=== PATIENT | female | born 1990 | race African-American/Black ===

== ENCOUNTER 2022-01-03 17:22 | Emergency (ER) | payer BC, MEDICAID, SELFPAY ==
[2022-01-03 17:32] VITALS: BP 138/87; PULSE 83; RESP 16; TEMP 36.3; O2SAT 100
--- NOTE | 2022-01-03 17:35 | ED.URI ---
HPI - URI/Sore Throat General Chief Complaint: Headache Stated Complaint: Headaches,Hot and Cold Flashes Time Seen by Provider: 01/03/22 17:35 Source: patient Mode of arrival: ambulatory Limitations: no limitations History of Present Illness HPI Narrative: Ms. Valles is a 31-year-old female patient presenting to the clinic today with complaints of headache, dental pain, body aches, and hot/cold flashes x2 to 3 days. 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 She denies any known fever. Related Data Allergies Allergy/AdvReac Type Severity Reaction Status Date / Time No Known Allergies Allergy Verified 01/03/22 17:32 Review of Systems Review of Systems: Pertinent positives per HPI. Patient denies any fever, rash, visual changes, dizziness, cough, runny nose, sore throat, shortness of breath, chest pain, palpitations, nausea, vomiting, diarrhea, constipation, abdominal pain, or any urinary issues. PMFSH Comments At the time of my signature, I reviewed and agree with the nursing past medical, surgical, social, and family history. There is no relevant family history pertinent to the patient complaint. Exam Narrative: General: Well-developed, obese, in no apparent distress Head: Normocephalic, atraumatic Eyes: Pupils equally round and reactive to light bilaterally, EOM intact, sclera and conjunctive clear, no discharge, lids normal Ears: TMs intact and clear, ear canals clear, no drainage, grossly hearing normal. Nose: Nares patent, no discharge, no inflammation, no sinus tenderness. Mouth: Oropharynx without lesions or masses, poor dentition, MMM. Fractured tooth with cavity and gum swelling to tooth #3 Neck: Supple, trachea midline, no enlargement of anterior or posterior cervical nodes, no thyroid masses or goiter palpable. Cardio: Regular rate and rhythm, s1 and s2 normal, no murmur appreciated. Resp: Clear to auscultation bilaterally anteriorly and posteriorly, no rhonchi, rales, wheezing or rubs Course Course Emergency Course: Portions of this record may have been created with voice recognition software. Level of Care: Express Care Visit Vital Signs Vital signs: Vital Signs Temperature 36.3 C L 01/03/22 17:32 Pulse Rate 83 01/03/22 17:32 Respiratory Rate 16 01/03/22 17:32 Blood Pressure 138/87 01/03/22 17:32 Pulse Oximetry 100 01/03/22 17:32 Oxygen Delivery Room Air 01/03/22 17:32 Temperature 36.3 C L 01/03/22 17:32 Pulse Rate 83 01/03/22 17:32 Respiratory Rate 16 01/03/22 17:32 Blood Pressure 138/87 01/03/22 17:32 Pulse Oximetry 100 01/03/22 17:32 Oxygen Delivery Room Air 01/03/22 17:32 Vital signs reviewed MDM - URI/Sore Throat MDM Narrative Medical decision making narrative: At the time of visit patient is resting comfortably on the exam table. COVID testing was completed in the clinic and was negative. I suspect the patient has a dental infection. I will send her in a prescription for some amoxicillin and have her follow-up with the dentist as soon as possible. Supportive measures were discussed with the patient she voiced understanding of discharge instructions and agrees to treatment plan. Lab Data Labs: Lab Results 01/03/22 Range/Units 17:40 POC SARS CoV-2 Ag Negative (Negative) Discharge Plan Discharge Clinical Impression: Dental infection Patient Disposition: Home, Self-Care Condition: Stable Instructions: Antibiotic Form, Toothache (ED) Additional Instructions: COVID testing negative in the clinic today. Take Tylenol/Motrin as needed for pain Amoxicillin as prescribed May apply heating pad to the affected area to help alleviate pain Follow-up with your PCP in 3 to 5 days if symptoms persist or sooner if they worsen Follow-up with your dentist as soon as possible Prescriptions: New amoxicillin 500 mg tablet 500 mg PO Q8H 10 Days Qty: 30 0RF Follow-up/Referrals: PHYSICIAN,MAINTENANCE DEPARTMENT TECHNICIAN [Primary C
== END 2022-01-03 18:11 | disposition home or self-care (01) ==
PROVIDERS: Emergency Provider Nurse Practitioner Family
DX: K04.7 Periapical abscess without sinus (principal); Z20.822 Contact with and (suspected) exposure to COVID-19
CPT/HCPCS: 87426; 99213; C9803; G0463

== ENCOUNTER 2023-12-01 13:02 | Emergency (ER) | payer BC, MEDICAID, SELFPAY ==
[2023-12-01 13:10] VITALS: BP 105/58; PULSE 99; RESP 18; TEMP 39.8; O2SAT 99
--- NOTE | 2023-12-01 13:15 | ED.URI ---
HPI - URI/Sore Throat General Chief Complaint: Fever Stated Complaint: Headache/Chills Time Seen by Provider: 12/01/23 13:15 Source: patient, RN notes reviewed and old records reviewed Mode of arrival: ambulatory Limitations: no limitations History of Present Illness HPI Narrative: Patient presents with complaints of fever, headache, body ache, chills, sweats, runny nose. She reports that symptoms began last night she took some Tylenol p.m. last night. Has not taken anything for her symptoms today Related Data Allergies Allergy/AdvReac Type Severity Reaction Status Date / Time No Known Allergies Allergy Verified 12/01/23 13:23 Review of Systems Review of Systems: All systems reviewed & are unremarkable except as noted in HPI and below Constitutional: Constitutional: Reports as per HPI, Reports no additional constitutional complaints, Reports body ache(s), Reports chills and Reports fever(s) ENT: Reports system reviewed and no additional complaints, except as documented, Reports as per HPI, Reports headache(s) and Reports nasal discharge Cardiovascular: Cardiovascular: Reports as per HPI and Reports no additional cardiovascular complaints Respiratory: Respiratory: Reports as per HPI and Reports no additional respiratory complaints Gastrointestinal: Gastrointestinal: Reports no additional gastrointestinal complaints Exam Const: General: cooperative, no acute distress, awake, tired appearing and uncomfortable Orientation/consciousness: oriented to person, oriented to place and oriented to time HENMT: Head: normal to inspection Ears: TM's normal bilaterally Resp: Effort & Inspection: normal respiratory effort and able to speak in complete sentences Auscultation: clear to auscultation bilaterally, no crackles, no rales, no rhonchi and no wheezes Cardio: Palpation: normal PMI Rate: regular rate Rhythm: regular rhythm Heart sounds: S1 normal heart sound present and S2 normal heart sound present Neuro: General: oriented to person, oriented to place and oriented to time Cranial nerves: Yes CN's II-XII intact bilaterally Psych: Appearance: grossly normal Thought process: Normal thought process present Insight: Good insight present (Psych) Judgement: Good judgement present (Psych) Course Course Level of Care: Express Care Visit MDM - URI/Sore Throat MDM Narrative Medical decision making narrative: Negative flu, positive COVID. Patient given ibuprofen prior to departure. Discussed supportive care measures with patient, she verbalizes understanding of same. Follow-up with primary care provider. Emergency department for new or worse symptoms. Discharge instructions reviewed with patient, as well as provided in writing per nursing staff. The instructions also include specific and strict return/GO TO THE ER as well as f/u information. All questions have been answered, and the patient deny any further questions with discharge and discharge plan. Some parts of this dictation were generated by voice recognition software and may contain typographical and/or grammatical inaccuracies. Differential Diagnosis Differential diagnosis: Likely upper respiratory infection, croup, sinusitis, viral infection, bronchitis and influenza Medical Records Attestation: I reviewed the patient's medical records. Lab Data Attestation: I reviewed the patient's lab results. Lab results narrative: Negative flu, positive COVID Discharge Plan Discharge Clinical Impression: COVID-19 Patient Disposition: Home, Self-Care Condition: Stable Instructions: Antibiotic Form, How to Recover from COVID-19 at Home (ED) Additional Instructions: Take Tylenol per package instructions, ibuprofen as prescribed as needed. Follow-up with primary care provider. Emergency department for new or worse symptoms. Patient Language: Amharic Prescriptions: New ibuprofen [IBU] 600 mg tablet 600 mg PO TID PRN (Reason: fever or pain) Qty: 90 0RF
[2023-12-01 13:29] VITALS: TEMP 39.8
[2023-12-01] MEDS: IBUPROFEN 600 MG TABLET PO (13:29)
[2023-12-01 13:33] LABS: EDINFLUASCREEN Negative; EDINFLUBSCREEN Negative
--- NOTE | 2023-12-01 13:35 | PC.NURSE ---
PT ADMIN IBUPROFEN FOR FEVER, WANTED TO GO HOME TO REST RATHER THAN WAIT FOR RECHECK OF FEVER R/T COVID.
== END 2023-12-01 13:35 | disposition home or self-care (01) ==
PROVIDERS: Emergency Provider Nurse Practitioner Family
DX: U07.1 COVID-19 (principal)
CPT/HCPCS: 87426; 87804; 99213; A9270; G0463